=== PATIENT | male | born 1940 | race Two or more races ===

== ENCOUNTER 2016-10-05 08:30 | Emergency (ER) | payer MEDICARE, BC ==
[~2016-10-05] VITALS: Ht 167.6 cm; Wt 72.6 kg
--- NOTE | 2016-10-05 08:43 | NUR ---
dr barrera at the bedside for eval and exam.
--- NOTE | 2016-10-05 09:15 | NUR ---
Dr Maher performed closed reduction of the LT middle finger, pt tolorated well. pt's finger injected w/ Lidocaine per .
[2016-10-05 09:27] VITALS: BP 164/70
--- NOTE | 2016-10-05 09:31 | NUR ---
Patient discharged to home in stable conditon. Written and verbal after care instructions given. Patient verbalizes understanding of instructions.
== END 2016-10-05 09:31 | disposition home or self-care (01) ==
LOC: ER 08:30
DX: S63.283A Dislocation of proximal interphalangeal joint of left middle finger, initial encounter (principal); I10 Essential (primary) hypertension; E11.9 Type 2 diabetes mellitus without complications; Z88.0 Allergy status to penicillin; W18.30XA Fall on same level, unspecified, initial encounter; Y93.89 Activity, other specified; Y99.8 Other external cause status; Y92.89 Other specified places as the place of occurrence of the external cause
CPT/HCPCS: 26770; 73130; 73140; 99284; A4663

== ENCOUNTER 2016-12-19 09:42 | Emergency (ER) | payer MEDICARE, BC ==
[~2016-12-19] VITALS: Ht 167.6 cm; Wt 72.6 kg
[2016-12-19] MEDS ORDERED: METF10002 PO (09:53)
[2016-12-19] MEDS ORDERED: OXYC15TA82 PO (09:53)
[2016-12-19] MEDS ORDERED: PREG75CA PO (09:53)
[2016-12-19] MEDS ORDERED: SITA50TA PO (09:53)
--- NOTE | 2016-12-19 11:03 | NUR ---
MSE COMPLETED, PT HAD FINGER SPLINT PLACED TO LEFT MIDDLE FINGER, THEN PT WAS D/C'D HOME. ACI AND CD COPY OF XRAYS GIVEN TO PT, WHOM STATED FELT BETTER WITH FINGER SPLINT IN PLACE. PT AMBULATED W/O DIFF/TOOK ALL BELONGINGS.
[2016-12-19 11:07] VITALS: BP 148/72
== END 2016-12-19 11:07 | disposition home or self-care (01) ==
LOC: ER 09:42
DX: S69.92XA Unspecified injury of left wrist, hand and finger(s), initial encounter (principal); I10 Essential (primary) hypertension; E11.9 Type 2 diabetes mellitus without complications; Z88.0 Allergy status to penicillin; X50.9XXA Other and unspecified overexertion or strenuous movements or postures, initial encounter; Y93.89 Activity, other specified; Y92.9 Unspecified place or not applicable; Y99.9 Unspecified external cause status
CPT/HCPCS: 29130; 73140; 99284; A4663

== ENCOUNTER 2017-08-04 09:05 | Emergency (ER) | payer MEDICARE, BC ==
[~2017-08-04] VITALS: Ht 167.6 cm; Wt 74.8 kg
[~2017-08-04 09:05] MED LIST: METF10004 PO; OXYC15TA82 PO; PREG75CA PO; SITA50TA PO
[2017-08-04] MEDS ORDERED: ASPI-605 PO (09:25)
[2017-08-04] MEDS ORDERED: PREG100C PO (09:25)
[2017-08-04] MEDS ORDERED: FENT1PAT23 TD (09:25)
--- NOTE | 2017-08-04 10:16 | NUR ---
PT WAS EVALUATED BY DR PALUMBO. PT WAS D/C TO HOME. D/C INSTRUCTIONS GIVEN TO THE PT.
[2017-08-04 10:17] VITALS: BP 142/77
== END 2017-08-04 10:18 | disposition home or self-care (01) ==
LOC: ER 09:05
DX: M72.0 Palmar fascial fibromatosis [Dupuytren] (principal); I10 Essential (primary) hypertension; E11.9 Type 2 diabetes mellitus without complications; Z88.0 Allergy status to penicillin; Z79.82 Long term (current) use of aspirin; Z79.891 Long term (current) use of opiate analgesic; Z79.84 Long term (current) use of oral hypoglycemic drugs; Z79.899 Other long term (current) drug therapy
CPT/HCPCS: 73130; A4663